=== PATIENT | female | born 1930 | race Caucasian/White ===

== ENCOUNTER 2017-06-20 15:40 | Outpatient (CLI) | payer MEDICARE, OTHER ==
[2016-03-12 02:18] VITALS: BP 172/75
== END 2017-06-20 15:50 ==
LOC: CARD 15:40
PROVIDERS: ATTEND Internal Medicine Cardiovascular Disease
DX: I25.10 Atherosclerotic heart disease of native coronary artery without angina pectoris (principal); I10 Essential (primary) hypertension; E78.5 Hyperlipidemia, unspecified; G62.9 Polyneuropathy, unspecified; Z86.79 Personal history of other diseases of the circulatory system
CPT/HCPCS: G0463

== ENCOUNTER 2018-06-10 12:28 | Outpatient (CLI) | payer MEDICARE, OTHER ==
[2016-03-12 02:18] VITALS: BP 172/75
== END 2018-06-10 12:30 ==
LOC: LAB 12:28
PROVIDERS: ATTEND Family Medicine
DX: R50.9 Fever, unspecified (principal); R05 Cough; R06.2 Wheezing
CPT/HCPCS: 87400

== ENCOUNTER 2018-06-13 09:39 | Inpatient (IN) | payer MEDICARE, OTHER ==
[2018-06-13] MEDS ORDERED: KETOROLAC TROMETHAMINE 30 MG/1ML VIAL IVP ONE (09:40)
[2018-06-13] MEDS ORDERED: IPRATROPIUM/ALBUTEROL SULFATE 3 ML AMPUL.NEB NEB ONE (09:40)
[2018-06-13] MEDS ORDERED: 0.9 % SODIUM CHLORIDE 1,000 ML IV SCH (09:45)
--- NOTE | 2018-06-13 09:50 | ED Physician Documentation ---
General Adult - HISTORIAN Historian: patient - HPI Stated Complaint: fever, pneumonia, decreased LOC Chief Complaint: Fever Onset: days ago (1) Timing: still present Severity: moderate Further Comments: yes (Per staff at alf she was dx with pneumonia 3 days ago and started on Levaquin with no change in symptoms. She has had fever. Increased fatigue. cough. She arrives via ambulance. The EMS report she has had an episode of vomiting as well.) Last known Well Code/Unknown Code: Unknown - ROS CONST: fever, recent illness EYES/ENT: other ([place] ) CVS/RESP: cough, other (oxygen levels ). denies: chest pain, shortness of breath GI/: vomiting MS/SKIN/LYMPH: denies: rash - PAST HX Past History: hypertension, other (Gout, stress incontinence, dementia ) Allergies/Adverse Reactions: Allergies Allergy/AdvReac Type Severity Reaction Status Date / Time Penicillins Allergy Verified 06/13/18 10:28 Home Medications: Ambulatory Orders Medication Instructions Recorded Acetaminophen [Tylenol] 650 mg PO Q6 PRN 06/13/18 Cyanocobalamin [Vitamin B-12] 1,000 mcg PO DAILY 06/13/18 Furosemide [Lasix] 20 mg PO DAILY 06/13/18 Levofloxacin [Levaquin] 500 mg PO DAILY 06/13/18 Mag Hydrox/Aluminum Hyd/Simeth 30 ml PO DAILY PRN 06/13/18 [Mylanta] Magnesium Hydroxide [Milk of 30 ml PO DAILY PRN 06/13/18 Magnesia] - SOCIAL HX Smoking History: non-smoker Alcohol Use: none Drug Use: none - FAMILY HX Family History: No - VITAL SIGNS Vital Signs: Vital Signs Temp Pulse Resp BP Pulse Ox 172/75 03/12/16 02:16 - REVIEWED ASSESSMENTS Nursing Assessment Reviewed: Yes Vitals Reviewed: Yes Progress - Progress Progress: 1047: temp is improving. DG 1 1200: discussed care with Dr Avila. Ordered discussed and noted. she will be admitted. Care for kidney failure - slowly hydrate. Treat pneumonia - observe BNP due to kidney status. DG ED Results Lab/Radiology - Radiology Radiology Impressions: Examination: Portable chest History: Evaluate lungs FEVER, HX OF PNEUMONIA PER JAIL Comparison exam: None provided. Findings: Single view of the chest demonstrates a hypoventilated inspiratory effort resulting in crowding of the cardiac and mediastinal silhouette. Tortuous aorta with vascular calcifications. Diffuse parenchymal haziness. Large consolidative process involving the lateral margin of the right hemithorax. Osseous degenerative changes/osteopenia. Impression: Large right lateral consolidation/effusion (likely loculated). Diffuse interstitial prominence suggesting increased volume status vs infiltrate. Electronically signed on Jun 13, 2018 10:35:44 AM [employer] by: Flex Royal - Orders Orders: ED Orders Category Date Time Status Urinary catheterization 1T Care 06/13/18 09:41 Active CHEST 1VIEW [RAD] Stat Exams 06/13/18 Ordered BLOOD CULTURE Stat Lab 06/13/18 Ordered CBC/PLATELET/DIFF Routine Lab 06/13/18 Ordered CMP Routine Lab 06/13/18 Ordered INFLUENZA A&B Routine Lab 06/13/18 Uncollected URINALYSIS Routine Lab 06/13/18 Ordered 0.9 % Sodium Chloride [Normal Saline] 1,000 ml Med 06/13/18 09:45 Ordered IV Q10H Ipratropium/Albuterol Sulfate [Duoneb] Med 06/13/18 09:40 Discontinued 3 ml NEB NOW ONE Ketorolac Tromethamine [Toradol] Med 06/13/18 09:40 Discontinued 30 mg IVP NOW ONE Oxygen Daily Oxygen 06/13/18 09:45 Ordered General Adult Physical Exam - PHYSICAL EXAM GENERAL APPEARANCE: no distress EENT: eye inspection normal, dry mucous membranes NECK: normal inspection RESPIRATORY: chest non-tender, wheezes, rhonchi CVS: reg rate & rhythm, heart sounds normal ABDOMEN: soft, no organomegaly, normal bowel sounds, no abdominal bruit, no distension BACK: normal inspection SKIN: warm/dry EXTREMITIES: non-tender NEURO: other (arouses to verbal stimuli No verbal response ) Discharge Clincal Impression: Pneumonia Qualifiers: Pneumonia type: due to unspecified organism Laterality: right Lung location: lower lobe of lung Qualified Code(s): J18.1 - Lobar pneumonia, unspecified organism Kidney failure Qualifiers: Renal failure chronicity: acute Acute renal failure type: unspecified Qualified Code(s): N17.9 - Acute kidney failure, unspecified Condition: Serious Disposition: ADMITTED INPATIENT Decision to Admit: [id number] Date of Decison to Admit: 06/13/18 Decision Time: 12:00
[2018-06-13 10:08] LABS: MEAN CORPUSCULAR HEMOGLOBIN 27.3 pg (28.0-34.0)
[2018-06-13 10:09] LABS: ANISOCYTOSIS 1+ (NEGATIVE); MONOCYTES % 5 % (0-11); SEGMENTED NEUTROPHILS % 85 % (39-79)
[2018-06-13 10:10] LABS: OVALOCYTES 1+ (NEGATIVE)
[2018-06-13 10:40] LABS: APPEARANCE,URINE CLOUDY (CLEAR); COLOR,URINE AMBER (YELLOW); OCCULT BLOOD,URINE 3+ (NEGATIVE); UROBILINOGEN URINE 0.2 Eu (0.2-1.0)
[2018-06-13] MEDS ORDERED: ALBUTEROL SULFATE 2.5 MG/3 ML AMPUL.NEB NEB ONE (11:27)
[2018-06-13] MEDS ORDERED: cefTRIAXone SODIUM 1 GM INJ ONE (12:10)
[2018-06-13] MEDS ORDERED: 0.9 % SODIUM CHLORIDE(MINIBAG+ 100 ML IV ONE (12:11)
[2018-06-13] MEDS: cefTRIAXone SODIUM 1 GM/50 ML INJ IV SCH (12:20)
[2018-06-13 13:03] VITALS: BMI 34.9
[2018-06-13] MEDS ORDERED: AZITHROMYCIN 500 MG VIAL IV ONE (13:46)
[2018-06-13] MEDS ORDERED: 0.9 % SODIUM CHLORIDE 250 ML IV ONE (13:47)
[2018-06-13] MEDS: AZITHROMYCIN 500 MG in 0.9 % SODIUM CHLORIDE 250 ML IV SCH (13:56)
--- NOTE | 2018-06-13 14:51 | Diagnostic Imaging Report ---
<p>Your browser does not support iframes.</p> CRYSTAL VILLALOBOS [facility] [address] [facility] [address] [address] Report Submission Date: Jun 13, 2018 10:35:44 AM FULL TIME BABYSITTER Patient Study Name: DELANO DE LEÓN Date: Jun 13, 2018 9:52:27 AM FULL TIME BABYSITTER Modality Type: DX Gender: F Description: CHEST 1VIEW : [birth year] Institution: [facility] Physician: CRYSTAL VILLALOBOS Examination: Portable chest History: Evaluate lungs FEVER, HX OF PNEUMONIA PER LONG TERM Comparison exam: None provided. Findings: Single view of the chest demonstrates a hypoventilated inspiratory effort resulting in crowding of the cardiac and mediastinal silhouette. Tortuous aorta with vascular calcifications. Diffuse parenchymal haziness. Large consolidative process involving the lateral margin of the right hemithorax. Osseous degenerative changes/osteopenia. Impression: Large right lateral consolidation/effusion (likely loculated). Diffuse interstitial prominence suggesting increased volume status vs infiltrate. Electronically signed on Jun 13, 2018 10:35:44 AM FULL TIME BABYSITTER by: Flex KUO
[2018-06-13] MEDS: IPRATROPIUM/ALBUTEROL SULFATE 3 ML AMPUL.NEB NEB SCH ×3 (15:10→21:16)
--- NOTE | 2018-06-13 17:10 | History and Physical Report ---
History of Present Illnes - History of Present Illness Reason for Visit: Pneumonia History of Present Illness: This is an 87 year old female patient of mine from [facility] who has been having some cough and decreased sensorium for the pat few days. She was on levofloxacin for 3 days, orally, but continued to decline and was brought to the ER, where she was found to be in acute renal failure which seem to be pre renal, and with a large right sided consolidation and a white count of 21K. She has been placed on IV rocephin and azithromycin. We have been gently rehydrating her, and she has actually been a little more oriented over the course of the day. She has an advanced directive and wants no resuscitative measures. 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, Peripheral neuropathy Gastrointestinal: GERD - Past Surgical History Past Surgical History: Appendectomy, Tonsillectomy, Other (T[employer] Fundiplicatio n, leg reconstruction ,left nephrectomy as a child) - Past Social History Smoke: No Alcohol: None Drugs: None Lives: Senior Living ([facility]) Domestic Violence: Negative - Health Maintenance Health Maintenance: Cholesterol Influenza Vaccine: Current for this Influenza Season Pneumonia Vaccine: Yes Resuscitation Status: Resusciation Status Resuscitation Status Do Not Resuscitate - Unable to Obtain History Unable to Obtain: No Review of Systems - Review of Systems Constitutional: Fever, Chills, Sweats, Weakness Eyes: negative: pain ENT: negative: Ear Pain, Ear Discharge Respiratory: Cough, Shortness of Breath, SOB with Excertion. negative: Hemoptysis Cardiovascular: negative: Chest Pain Gastrointestinal: negative: Nausea, Vomiting Genitourinary: negative: Dysuria Musculoskeletal: negative: Neck Pain Skin: negative: Rash Neurological: Weakness, Confusion - Medications/Allergies Allergies/Adverse Reactions: Allergies Allergy/AdvReac Type Severity Reaction Status Date / Time Penicillins Allergy Unknown Verified 06/13/18 14:28 Home Medications: Home Medications Acetaminophen [Tylenol] 650 mg PO Q6 PRN 06/13/18 Cyanocobalamin [Vitamin B-12] 1,000 mcg PO DAILY 06/13/18 Furosemide [Lasix] 20 mg PO DAILY 06/13/18 Levofloxacin [Levaquin] 500 mg PO DAILY 06/13/18 Mag Hydrox/Aluminum Hyd/Simeth [Mylanta] 30 ml PO DAILY PRN 02/27/19 Magnesium Hydroxide [Milk of Magnesia] 30 ml PO DAILY PRN 06/13/18 Current Inpatient Medications: Current Inpatient Medications Albuterol/Ipratropium (Duoneb) 3 ml NEB Q4 [facility] Last Admin: 06/13/18 15:10 Dose: 3 ml Ceftriaxone Sodium (Rocephin) 1 gm IV DAILY [facility] Last Admin: 06/13/18 12:20 Dose: 1 gm Sodium Chloride (Normal Saline) 1,000 mls @ 100 mls/hr IV Q10H [facility] Azithromycin 500 mg/ Sodium (Chloride) 250 mls @ 125 mls/hr IV Q24H [facility] Stop: 06/23/18 12:59 Last Admin: 06/13/18 13:56 Dose: 125 mls/hr Sodium Chloride (Normal Saline Flush) 10 ml IVF BID [facility] Exam - Exam Vital Signs: Vital Signs (72 hours) 06/13/18 06/13/18 06/13/18 09:40 10:44 12:20 Temperature 101.6 F H 100.1 F H Pulse Rate [ 109 H 123 H Apical] Pulse Rate [ Left] Pulse Rate [ 111 H Pulse ox] Respiratory 25 H 24 22 Rate Blood Pressure 111/51 116/40 105/68 [Left Arm] O2 Sat by Pulse 93 95 95 Oximetry 06/13/18 06/13/18 06/13/18 12:54 12:57 15:30 Temperature 98.7 F 98.7 F 99.2 F Pulse Rate [ Apical] Pulse Rate [ 121 H 121 H Left] Pulse Rate [ Pulse ox] Respiratory 20 20 Rate Blood Pressure 112/50 112/50 [Left Arm] O2 Sat by Pulse 96 96 Oximetry General: No: Alert, Oriented to Person, Oriented to Place, Oriented to Time HEENT: Atraumatic, PERRLA, EOMI Neck: No: Stridor Lungs: Wheezes, Rales, Rhonchi, Decreased Air Movement Cardiovascular: Irregularly Irregular Murmur: Systolic Murmur Murmur Location: Left Sternal Boarder Heart Murmur Grade: II Abdomen: Normal bowel sounds, Soft Genitourinary: No: Other Male Genitourinary: No: Other Female Genitourinary: No: Other Integumentary: No: Cyanotic Extremities: No cyanosis Neurological: No: Normal gait, Normal speech, Strength Equal Bilat Psych/Mental Status: Other (Minimally responsive) - Laboratory Results Laboratory Results: Laboratory Results 06/13/18 06/13/18 06/13/18 09:45 09:45 09:45 WBC 21.60 H RBC 4.66 Hgb 12.7 Hct 39.3 MCV 84.0 MCH 27.3 L MCHC 32.3 RDW 16.3 H Plt Count 381 Seg Neutrophils % 85 H Band Neutrophils % 3 Lymphocytes % 5 L Monocytes % 5 Metamyelocytes % 2 H Anisocytosis 1+ H Ovalocytes 1+ H [place] Cells 1+ H Sodium 136 Potassium 3.5 Chloride 94 L Carbon Dioxide 27 BUN 80 H Creatinine 3.40 H Estimated Creat Clear 17 Est GFR ( Amer) 16 L Est GFR (Non-Af Amer) 14 L Glucose 111 H Calcium 8.2 L Total Bilirubin 1.0 AST 71 H ALT 28 Alkaline Phosphatase 112 NT-Pro-B Natriuret Pep Total Protein 5.2 L Albumin 2.7 L Urine Color Cancelled Urine Appearance Cancelled Urine pH Cancelled Ur Specific [place] Cancelled Urine Protein Cancelled Urine Ketones Cancelled Urine Occult Blood Cancelled Urine Nitrite Cancelled Urine Bilirubin Cancelled Urine Urobilinogen Cancelled Ur Leukocyte Esterase Cancelled Urine RBC Cancelled Urine WBC Cancelled Urine WBC Clumps Cancelled Ur Squamous Epith Cells Cancelled Ur Transition Epith Cell Cancelled Ur Renal Epithelial Cell Cancelled Ammonium Urate Crystals Cancelled Calcium Carbonate Cryst Cancelled Calcium Phosphate Cryst Cancelled Calcium Oxalate Crystal Cancelled Leucine Crystals Cancelled Cystine Crystals Cancelled Uric Acid Crystals Cancelled Triple Phos Crystals Cancelled Cholesterol Crystals Cancelled Tyrosine Crystals Cancelled Hippuric Acid Crystals Cancelled Bilirubin Crystals Cancelled Other Crystals Cancelled Amorphous Sediment Cancelled Urine Bacteria Cancelled Hyaline Casts Cancelled Granular Casts Cancelled Waxy Casts Cancelled RBC Casts Cancelled WBC Casts Cancelled Other Casts Cancelled Urine Starch Cancelled Urine Mucus Cancelled Urine Trichomonas Cancelled Urine Yeast Cancelled Urine Sperm Cancelled Urine Glucose Cancelled Influenza A (Rapid) Influenza B (Rapid) 06/13/18 06/13/18 06/13/18 09:45 09:45 Unknown WBC RBC Hgb Hct MCV MCH MCHC RDW Plt Count Seg Neutrophils % Band Neutrophils % Lymphocytes % Monocytes % Metamyelocytes % Anisocytosis Ovalocytes [place] Cells Sodium Potassium Chloride Carbon Dioxide BUN Creatinine Estimated Creat Clear Est GFR ( Amer) Est GFR (Non-Af Amer) Glucose Calcium Total Bilirubin AST ALT Alkaline Phosphatase NT-Pro-B Natriuret Pep 80721.8 H Total Protein Albumin Urine Color [place] Urine Appearance Cloudy H Urine pH 5.0 Ur Specific [place] 1.020 Urine Protein 1+ H Urine Ketones Trace H Urine Occult Blood 3+ H Urine Nitrite Negative Urine Bilirubin 1+ H Urine Urobilinogen 0.2 Ur Leukocyte Esterase 3+ H Urine RBC Urine WBC Urine WBC Clumps Ur Squamous Epith Cells Ur Transition Epith Cell Ur Renal Epithelial Cell Ammonium Urate Crystals Calcium Carbonate Cryst Calcium Phosphate Cryst Calcium Oxalate Crystal Leucine Crystals Cystine Crystals Uric Acid Crystals Triple Phos Crystals Cholesterol Crystals Tyrosine Crystals Hippuric Acid Crystals Bilirubin Crystals Other Crystals Amorphous Sediment Urine Bacteria Hyaline Casts Granular Casts Waxy Casts RBC Casts WBC Casts Other Casts Urine Starch Urine Mucus Urine Trichomonas Urine Yeast Urine Sperm Urine Glucose Negative Influenza A (Rapid) Negative Influenza B (Rapid) Negative Assessment/Plan - Assessment/Plan (1) Pneumonia Status: Acute Current Visit: Yes Qualifiers: Pneumonia type: due to unspecified organism Laterality: right Lung location: lower lobe of lung Qualified Code(s): J18.1 - Lobar pneumonia, unspecified organism Assessment: Continue rocephin and azithromycin Continue nebulizer treatments Supplemental oxygen (2) Kidney failure Status: Acute Current Visit: Yes Qualifiers: Renal failure chronicity: acute Acute renal failure type: unspecified Qualified Code(s): N17.9 - Acute kidney failure, unspecified Assessment: Complicated by solitary kidney (3) Atrial fibrillation with rapid ventricular response Status: Acute Current Visit: No Assessment: New onset (4) Chronic hypertension Status: Acute Current Visit: No Assessment: currently well controlled VTE Assessment - RISK FACTOR SCORE VTE RISK FACTOR SCORES: AGE OVER 60 YEARS, ACUTE INFECTION OTHER THEN SEPSIS, ACUTE RESPIRATORY FAILURE/SEVERE COPD - RISK VTE HIGH RISK: SCORE OF 3-4 (RISK PROXIMAL DVT 4-8%) PROPHYLAXIS NEEDED (On Lovenox, SCDs)
[2018-06-13] MEDS: ENOXAPARIN SODIUM 30 MG/0.3 ML DISP.SYRIN SQ SCH (18:13)
[2018-06-13] MEDS: 0.9 % SODIUM CHLORIDE 1,000 ML IV SCH (23:05)
[2018-06-13] MEDS: SALINE FLUSH 10 ML DISP.SYRIN IVF SCH (23:05)
[2018-06-14] MEDS: IPRATROPIUM/ALBUTEROL SULFATE 3 ML AMPUL.NEB NEB SCH ×6 (02:39→21:56)
[2018-06-14] MEDS: 0.9 % SODIUM CHLORIDE 1,000 ML IV SCH ×2 (07:47→20:54)
[2018-06-14] MEDS: SALINE FLUSH 10 ML DISP.SYRIN IVF SCH ×2 (07:48→21:36)
[2018-06-14] MEDS: ENOXAPARIN SODIUM 30 MG/0.3 ML DISP.SYRIN SQ SCH (07:48)
[2018-06-14] MEDS: cefTRIAXone SODIUM 1 GM/50 ML INJ IV SCH (07:49)
[2018-06-14 07:51] LABS: BASOPHILS % 0.8 (0.0-1.5); EOSINOPHILS % 1.2 % (0.0-6.8); MEAN CORPUSCULAR HEMOGLOBIN 27.3 pg (28.0-34.0); MONOCYTES % 9.4 % (0.0-11.0); NEUTROPHILS # 12.8 # k/uL (1.4-7.7)
--- NOTE | 2018-06-14 07:59 | Inpatient Progress Note ---
Subjective - Required Recertification Statement I anticipate X number of days because-include discharge plan: 4 - Review of Systems Events since last encounter: Paulina is a little more alert today. Her white count has come down, however her chemistries are not yet back. Her temperature is better. She is drinking some orally now. General: Denies: Chills HEENT: Denies: Head Aches Pulmonary: Dyspnea, Cough Cardiovascular: Denies: Chest Pain Gastrointestinal: Denies: Nausea Genitourinary: Denies: Dysuria Musculoskeletal: Denies: Neck Pain, Shoulder Pain Neurological: Weakness, Confusion Objective - Exam Vitals and I&O: Vital Signs Temp 97.7 F 06/14/18 05:34 Pulse 107 H 06/14/18 06:00 Resp 22 06/14/18 06:00 BP 130/52 06/14/18 05:34 Pulse Ox 96 06/14/18 05:34 Intake & Output 06/13/18 06/13/18 06/14/18 11:59 23:59 11:59 Intake Total 120 Output Total 0 Balance 120 Weight 81.647 kg 95.254 kg Intake: Oral 120 Output: Urine 0 Other: Voiding Method Diaper Diaper # Voids 0 1 # Bowel Movements 0 General: Oriented to Person, Cooperative. No: Oriented to Place, Oriented to Time HEENT: Atraumatic, PERRLA Neck: Supple Lungs: Wheezes, Rales, Rhonchi, Decreased Air Movement Cardiovascular: Regular rate Abdomen: Normal bowel sounds, Soft, No tenderness Extremities: Other (2+ edema) Skin: Normal Neurological: Generalized Weakness Psych/Mental Status: No: Mental status NL - Results Results: Laboratory Results WBC 16.00 K/ul (4.00-12.00) H 06/14/18 07:20 RBC 3.91 M/ul (3.90-5.20) 06/14/18 07:20 Hgb 10.7 g/dL (12.0-16.0) L 06/14/18 07:20 Hct 32.7 % (34.5-46.5) L 06/14/18 07:20 MCV 84.0 fl (80.0-100.0) 06/14/18 07:20 MCH 27.3 pg (28.0-34.0) L 06/14/18 07:20 MCHC 32.6 g/dL (30.0-36.0) 06/14/18 07:20 RDW 15.8 % (11.3-14.3) H 06/14/18 07:20 Plt Count 323 K/mm3 (130-400) 06/14/18 07:20 Neut % (Auto) 80.0 % (39.0-79.0) H 06/14/18 07:20 Lymph % (Auto) 8.6 % (16.0-50.0) L 06/14/18 07:20 [place] % (Auto) 9.4 % (0.0-11.0) 06/14/18 07:20 Eos % (Auto) 1.2 % (0.0-6.8) 06/14/18 07:20 Baso % (Auto) 0.8 (0.0-1.5) 06/14/18 07:20 Neut # (Auto) 12.8 # k/uL (1.4-7.7) H 06/14/18 07:20 Lymph # (Auto) 1.4 # k/uL (0.6-4.0) 06/14/18 07:20 [place] # (Auto) 1.5 # k/uL (0.0-0.9) H 06/14/18 07:20 Eos # (Auto) 0.2 # k/uL (0.0-0.6) 06/14/18 07:20 Baso # (Auto) 0.1 # k/uL (0.0-0.5) 06/14/18 07:20 Seg Neutrophils % 85 % (39-79) H 06/13/18 09:45 Band Neutrophils % 3 % (0-12) 06/13/18 09:45 Lymphocytes % 5 % (16-50) L 06/13/18 09:45 Monocytes % 5 % (0-11) 06/13/18 09:45 Metamyelocytes % 2 % (0-0) H 06/13/18 09:45 Anisocytosis 1+ (NEGATIVE) H 06/13/18 09:45 Ovalocytes 1+ (NEGATIVE) H 06/13/18 09:45 [place]op[place] Cells 1+ (NEGATIVE) H 06/13/18 09:45 Sodium 136 mmol/L (136-145) 06/13/18 09:45 Potassium 3.5 mmol/L (3.5-5.1) 06/13/18 09:45 Chloride 94 mmol/L (98-107) L 06/13/18 09:45 Carbon Dioxide 27 mmol/L (22-30) 06/13/18 09:45 BUN 80 mg/dL (7-17) H 06/13/18 09:45 Creatinine 3.40 mg/dL (0.52-1.04) H 06/13/18 09:45 Estimated Creat Clear 17 06/13/18 09:45 Est GFR ( Amer) 16 (60-) L 06/13/18 09:45 Est GFR (Non-Af Amer) 14 (60-) L 06/13/18 09:45 Glucose 111 mg/dL (74-106) H 06/13/18 09:45 Calcium 8.2 mg/dL (8.4-10.2) L 06/13/18 09:45 Total Bilirubin 1.0 mg/dL (0.2-1.3) 06/13/18 09:45 AST 71 U/L (15-46) H 06/13/18 09:45 ALT 28 U/L (13-69) 06/13/18 09:45 Alkaline Phosphatase 112 U/L (38-126) 06/13/18 09:45 NT-Pro-B Natriuret Pep 65118.8 pg/mL (15.0-450.0) H 06/13/18 Unknown Total Protein 5.2 g/dL (6.3-8.2) L 06/13/18 09:45 Albumin 2.7 g/dL (3.5-5.0) L 06/13/18 09:45 Urine Color [place] (YELLOW) 06/13/18 09:45 Urine Appearance Cloudy (CLEAR) H 06/13/18 09:45 Urine pH 5.0 (5.0 - 8.0) 06/13/18 09:45 Ur Specific [place] 1.020 (1.010-1.030) 06/13/18 09:45 Urine Protein 1+ mg/dL (NEGATIVE) H 06/13/18 09:45 Urine Ketones Trace mg/dL (NEGATIVE) H 06/13/18 09:45 Urine Occult Blood 3+ (NEGATIVE) H 06/13/18 09:45 Urine Nitrite Negative (NEGATIVE) 06/13/18 09:45 Urine Bilirubin 1+ (NEGATIVE) H 06/13/18 09:45 Urine Urobilinogen 0.2 Eu (0.2-1.0) 06/13/18 09:45 Ur Leukocyte Esterase 3+ (NEGATIVE) H 06/13/18 09:45 Urine RBC Cancelled 06/13/18 09:45 Urine WBC Cancelled 06/13/18 09:45 Urine WBC Clumps Cancelled 06/13/18 09:45 Ur Squamous Epith Cells Cancelled 06/13/18 09:45 Ur Transition Epith Cell Cancelled 06/13/18 09:45 Ur Renal Epithelial Cell Cancelled 06/13/18 09:45 Ammonium Urate Crystals Cancelled 06/13/18 09:45 Calcium Carbonate Cryst Cancelled 06/13/18 09:45 Calcium Phosphate Cryst Cancelled 06/13/18 09:45 Calcium Oxalate Crystal Cancelled 06/13/18 09:45 Leucine Crystals Cancelled 06/13/18 09:45 Cystine Crystals Cancelled 06/13/18 09:45 Uric Acid Crystals Cancelled 06/13/18 09:45 Triple Phos Crystals Cancelled 06/13/18 09:45 Cholesterol Crystals Cancelled 06/13/18 09:45 Tyrosine Crystals Cancelled 06/13/18 09:45 Hippuric Acid Crystals Cancelled 06/13/18 09:45 Bilirubin Crystals Cancelled 06/13/18 09:45 Other Crystals Cancelled 06/13/18 09:45 Amorphous Sediment Cancelled 06/13/18 09:45 Urine Bacteria Cancelled 06/13/18 09:45 Hyaline Casts Cancelled 06/13/18 09:45 Granular Casts Cancelled 06/13/18 09:45 Waxy Casts Cancelled 06/13/18 09:45 RBC Casts Cancelled 06/13/18 09:45 WBC Casts Cancelled 06/13/18 09:45 Other Casts Cancelled 06/13/18 09:45 Urine Starch Cancelled 06/13/18 09:45 Urine Mucus Cancelled 06/13/18 09:45 Urine Trichomonas Cancelled 06/13/18 09:45 Urine Yeast Cancelled 06/13/18 09:45 Urine Sperm Cancelled 06/13/18 09:45 Urine Glucose Negative mg/dL (NEGATIVE) 06/13/18 09:45 Influenza A (Rapid) Negative (NEGATIVE) 06/13/18 09:45 Influenza B (Rapid) Negative (NEGATIVE) 06/13/18 09:45 Assessment/Plan - Assessment/Plan (1) Pneumonia Status: Acute Current Visit: Yes Qualifiers: Pneumonia type: due to unspecified organism Laterality: right Lung location: lower lobe of lung Qualified Code(s): J18.1 - Lobar pneumonia, unspecified organism Assessment: WBC is down CXR and chemistries pending (2) Kidney failure Status: Acute Current Visit: Yes Qualifiers: Renal failure chronicity: acute Acute renal failure type: unspecified Qualified Code(s): N17.9 - Acute kidney failure, unspecified Assessment: Continue IVF Await chemistries (3) Atrial fibrillation with rapid ventricular response Status: Acute Current Visit: No Assessment: Chronic (4) Chronic hypertension Status: Acute Current Visit: No Assessment: BP well controlled
[2018-06-14] MEDS: AZITHROMYCIN 500 MG in 0.9 % SODIUM CHLORIDE 250 ML IV SCH (15:25)
[2018-06-14] MEDS: LORazepam 2 MG/ML VIAL IV PRN (18:48)
[2018-06-14] MEDS: ACETAMINOPHEN 325 MG TABLET PO PRN (18:52)
[2018-06-15] MEDS: fentaNYL CITRATE/PF 100 MCG/2 ML INJ. IV PRN ×6 (00:31→23:11)
[2018-06-15] MEDS: IPRATROPIUM/ALBUTEROL SULFATE 3 ML AMPUL.NEB NEB SCH ×6 (01:50→20:38)
--- NOTE | 2018-06-15 02:12 | Diagnostic Imaging Report ---
CRYSTAL VILLALOBOS [facility] [address] [facility] [address], [place]. [address] Report Submission Date: Jun 14, 2018 7:34:22 AM PATIENT REGISTRATION REP Patient Study Name: DELANO DE LEÓN Date: Jun 14, 2018 6:57:45 AM PATIENT REGISTRATION REP Modality Type: DX Gender: F Description: CHEST 1VIEW : [birth year] Institution: [facility] Physician: CRYSTAL VILLALOBOS Examination: Portable chest History: Pneumonia/fever Comparison exam: 13 June 2018 Findings: Single view of the chest demonstrates a hypoventilated inspiratory effort resulting in crowding of the cardiac and mediastinal silhouette. Tortuous aorta with vascular calcifications. Continued diffuse parenchymal haziness. Large consolidative process involving the lateral margin of the right hemithorax. Osseous degenerative changes/osteopenia. Impression: Continued large right lateral consolidation/effusion. Diffuse interstitial prominence: unchanged. Electronically signed on Jun 14, 2018 7:34:22 AM PATIENT REGISTRATION REP by: Flex KUO
[2018-06-15] MEDS: LORazepam 2 MG/ML VIAL IV PRN ×2 (04:17→20:17)
[2018-06-15] MEDS: 0.9 % SODIUM CHLORIDE 1,000 ML IV SCH ×2 (04:45→04:48)
--- NOTE | 2018-06-15 08:39 | Inpatient Progress Note ---
Subjective - Required Recertification Statement I anticipate X number of days because-include discharge plan: 1 - Review of Systems Events since last encounter: Paulina has continued to decline. She appears to be comfortable. She now responds only to sternal rub. She has not had any improvement in her renal function and this morning, we had to TKO her fluids due to some signs of fluid overload. Her BNP continues to be very elevated. She does not appear to be in any pain. I have discussed with granddaughter that her condition is dire and that our goal is to keep her comfortable. General: Denies: Chills HEENT: Denies: Head Aches Pulmonary: Cough Cardiovascular: Denies: Chest Pain Gastrointestinal: Denies: Vomiting Genitourinary: Deferred Musculoskeletal: Deferred Neurological: Deferred Objective - Exam Vitals and I&O: Vital Signs Temp 98.7 F 06/15/18 06:43 Pulse 105 H 06/15/18 06:43 Resp 22 06/15/18 08:15 BP 104/69 06/15/18 06:43 Pulse Ox 97 06/15/18 06:43 Intake & Output 06/14/18 06/14/18 06/15/18 11:59 23:59 11:59 Intake Total 60 120 Output Total 1 Balance 60 119 Intake: Oral 60 120 Output: Urine 1 Other: Voiding Method Diaper Diaper Diaper # Voids 1 0 1 # Bowel Movements 0 General: No: Alert, Oriented to Person, Oriented to Place, Oriented to Time HEENT: Atraumatic Neck: Supple. No: No JVD (Some JVD is noted) Lungs: Wheezes, Rales, Rhonchi, Prolonged Expiration Cardiovascular: Irregularly Irregular, Tachycardia Abdomen: Normal bowel sounds, Soft, No tenderness Extremities: Other (1+ edema) Neurological: No: Normal gait Psych/Mental Status: Other (No vebally responsive) - Results Results: Laboratory Results WBC 16.00 K/ul (4.00-12.00) H 06/14/18 07:20 RBC 3.91 M/ul (3.90-5.20) 06/14/18 07:20 Hgb 10.7 g/dL (12.0-16.0) L 06/14/18 07:20 Hct 32.7 % (34.5-46.5) L 06/14/18 07:20 MCV 84.0 fl (80.0-100.0) 06/14/18 07:20 MCH 27.3 pg (28.0-34.0) L 06/14/18 07:20 MCHC 32.6 g/dL (30.0-36.0) 06/14/18 07:20 RDW 15.8 % (11.3-14.3) H 06/14/18 07:20 Plt Count 323 K/mm3 (130-400) 06/14/18 07:20 Neut % (Auto) 80.0 % (39.0-79.0) H 06/14/18 07:20 Lymph % (Auto) 8.6 % (16.0-50.0) L 06/14/18 07:20 [place] % (Auto) 9.4 % (0.0-11.0) 06/14/18 07:20 Eos % (Auto) 1.2 % (0.0-6.8) 06/14/18 07:20 Baso % (Auto) 0.8 (0.0-1.5) 06/14/18 07:20 Neut # (Auto) 12.8 # k/uL (1.4-7.7) H 06/14/18 07:20 Lymph # (Auto) 1.4 # k/uL (0.6-4.0) 06/14/18 07:20 [place] # (Auto) 1.5 # k/uL (0.0-0.9) H 06/14/18 07:20 Eos # (Auto) 0.2 # k/uL (0.0-0.6) 06/14/18 07:20 Baso # (Auto) 0.1 # k/uL (0.0-0.5) 06/14/18 07:20 Seg Neutrophils % 85 % (39-79) H 06/13/18 09:45 Band Neutrophils % 3 % (0-12) 06/13/18 09:45 Lymphocytes % 5 % (16-50) L 06/13/18 09:45 Monocytes % 5 % (0-11) 06/13/18 09:45 Metamyelocytes % 2 % (0-0) H 06/13/18 09:45 Anisocytosis 1+ (NEGATIVE) H 06/13/18 09:45 Ovalocytes 1+ (NEGATIVE) H 06/13/18 09:45 [place] Cells 1+ (NEGATIVE) H 06/13/18 09:45 Sodium 144 mmol/L (136-145) 06/15/18 07:15 Potassium 3.3 mmol/L (3.5-5.1) L 06/15/18 07:15 Chloride 105 mmol/L (98-107) 06/15/18 07:15 Carbon Dioxide 27 mmol/L (22-30) 06/15/18 07:15 BUN 84 mg/dL (7-17) H 06/15/18 07:15 Creatinine 3.02 mg/dL (0.52-1.04) H 06/15/18 07:15 Estimated Creat Clear 22 06/15/18 07:15 Est GFR ( Amer) 19 (60-) L 06/15/18 07:15 Est GFR (Non-Af Amer) 15 (60-) L 06/15/18 07:15 Glucose 78 mg/dL (74-106) 06/15/18 07:15 Calcium 7.9 mg/dL (8.4-10.2) L 06/15/18 07:15 Total Bilirubin 0.7 mg/dL (0.2-1.3) 06/14/18 07:20 AST 68 U/L (15-46) H 06/14/18 07:20 ALT 27 U/L (13-69) 06/14/18 07:20 Alkaline Phosphatase 98 U/L (38-126) 06/14/18 07:20 NT-Pro-B Natriuret Pep 15483.4 pg/mL (15.0-450.0) H 06/15/18 07:15 Total Protein 4.9 g/dL (6.3-8.2) L 06/14/18 07:20 Albumin 2.3 g/dL (3.5-5.0) L 06/14/18 07:20 Urine Color [place] (YELLOW) 06/13/18 09:45 Urine Appearance Cloudy (CLEAR) H 06/13/18 09:45 Urine pH 5.0 (5.0 - 8.0) 06/13/18 09:45 Ur Specific [place] 1.020 (1.010-1.030) 06/13/18 09:45 Urine Protein 1+ mg/dL (NEGATIVE) H 06/13/18 09:45 Urine Ketones Trace mg/dL (NEGATIVE) H 06/13/18 09:45 Urine Occult Blood 3+ (NEGATIVE) H 06/13/18 09:45 Urine Nitrite Negative (NEGATIVE) 06/13/18 09:45 Urine Bilirubin 1+ (NEGATIVE) H 06/13/18 09:45 Urine Urobilinogen 0.2 Eu (0.2-1.0) 06/13/18 09:45 Ur Leukocyte Esterase 3+ (NEGATIVE) H 06/13/18 09:45 Urine RBC Cancelled 06/13/18 09:45 Urine WBC Cancelled 06/13/18 09:45 Urine WBC Clumps Cancelled 06/13/18 09:45 Ur Squamous Epith Cells Cancelled 06/13/18 09:45 Ur Transition Epith Cell Cancelled 06/13/18 09:45 Ur Renal Epithelial Cell Cancelled 06/13/18 09:45 Ammonium Urate Crystals Cancelled 06/13/18 09:45 Calcium Carbonate Cryst Cancelled 06/13/18 09:45 Calcium Phosphate Cryst Cancelled 06/13/18 09:45 Calcium Oxalate Crystal Cancelled 06/13/18 09:45 Leucine Crystals Cancelled 06/13/18 09:45 Cystine Crystals Cancelled 06/13/18 09:45 Uric Acid Crystals Cancelled 06/13/18 09:45 Triple Phos Crystals Cancelled 06/13/18 09:45 Cholesterol Crystals Cancelled 06/13/18 09:45 Tyrosine Crystals Cancelled 06/13/18 09:45 Hippuric Acid Crystals Cancelled 06/13/18 09:45 Bilirubin Crystals Cancelled 06/13/18 09:45 Other Crystals Cancelled 06/13/18 09:45 Amorphous Sediment Cancelled 06/13/18 09:45 Urine Bacteria Cancelled 06/13/18 09:45 Hyaline Casts Cancelled 06/13/18 09:45 Granular Casts Cancelled 06/13/18 09:45 Waxy Casts Cancelled 06/13/18 09:45 RBC Casts Cancelled 06/13/18 09:45 WBC Casts Cancelled 06/13/18 09:45 Other Casts Cancelled 06/13/18 09:45 Urine Starch Cancelled 06/13/18 09:45 Urine Mucus Cancelled 06/13/18 09:45 Urine Trichomonas Cancelled 06/13/18 09:45 Urine Yeast Cancelled 06/13/18 09:45 Urine Sperm Cancelled 06/13/18 09:45 Urine Glucose Negative mg/dL (NEGATIVE) 06/13/18 09:45 Influenza A (Rapid) Negative (NEGATIVE) 06/13/18 09:45 Influenza B (Rapid) Negative (NEGATIVE) 06/13/18 09:45 Assessment/Plan - Assessment/Plan (1) Pneumonia Status: Acute Current Visit: Yes Qualifiers: Pneumonia type: due to unspecified organism Laterality: right Lung location: lower lobe of lung Qualified Code(s): J18.1 - Lobar pneumonia, unspecified organism Assessment: Continue current antibiotics (2) Kidney failure Status: Acute Current Visit: Yes Qualifiers: Renal failure chronicity: acute Acute renal failure type: unspecified Qualified Code(s): N17.9 - Acute kidney failure, unspecified Assessment: Not improved despite hydration (3) Atrial fibrillation with rapid ventricular response Status: Acute Current Visit: No Assessment: Now with rate controlled Will d/c telemetry (4) Chronic hypertension Status: Acute Current Visit: No Assessment: Stable
[2018-06-15] MEDS: cefTRIAXone SODIUM 1 GM/50 ML INJ IV SCH (09:28)
[2018-06-15] MEDS: ENOXAPARIN SODIUM 30 MG/0.3 ML DISP.SYRIN SQ SCH (09:28)
[2018-06-15] MEDS: SALINE FLUSH 10 ML DISP.SYRIN IVF SCH ×2 (09:29→20:24)
[2018-06-15] MEDS: AZITHROMYCIN 500 MG in 0.9 % SODIUM CHLORIDE 250 ML IV SCH (13:59)
[2018-06-15] MEDS ORDERED: fentaNYL CITRATE/PF 100 MCG/2 ML INJ. ONE ×2 (18:24→22:59)
[2018-06-15] MEDS: ACETAMINOPHEN 325 MG TABLET PO PRN (23:10)
[2018-06-16] MEDS: LORazepam 2 MG/ML VIAL IV PRN ×2 (01:23→11:24)
[2018-06-16] MEDS: IPRATROPIUM/ALBUTEROL SULFATE 3 ML AMPUL.NEB NEB SCH ×6 (01:23→20:47)
--- NOTE | 2018-06-16 01:26 | Diagnostic Imaging Report ---
[facility]/MED SURG [facility] [address] [address] [facility] [address] [id number] Report Submission Date: Jun 15, 2018 7:48:38 AM TRACK REPAIR PERSON Patient Study Name: DELANO DE LEÓN Date: Jun 15, 2018 7:11:01 AM TRACK REPAIR PERSON Modality Type: DX Gender: F Description: CHEST 1VIEW : [birth year] Institution: [facility] Physician: [facility]/MED SURG Exam: AP chest. History: Pneumonia. The examination is compared to a study dated June 14 2018. Right lower lobe atelectasis and pleural effusion does persist. Linear infiltrates in the left base are noted. Cardiomegaly is stable with atherosclerotic plaque seen in the aorta. No new bony abnormalities are identified. Impression: No significant change. Electronically signed on Jun 15, 2018 7:48:38 AM TRACK REPAIR PERSON by: Rob KUO
[2018-06-16] MEDS: ACETAMINOPHEN 325 MG TABLET PO PRN (06:27)
[2018-06-16] MEDS: ENOXAPARIN SODIUM 30 MG/0.3 ML DISP.SYRIN SQ SCH (09:15)
[2018-06-16] MEDS: SALINE FLUSH 10 ML DISP.SYRIN IVF SCH ×2 (09:17→20:58)
--- NOTE | 2018-06-16 09:17 | Inpatient Progress Note ---
Subjective - Required Recertification Statement I anticipate X number of days because-include discharge plan: 1 day - Review of Systems Events since last encounter: Patient's condition continues to decline. Patient is not taking anything by mouth this time. Fentanyl does not seem to be holding her with her pain. Pain is developing some pulmonary congestion. Family is aware of patient's condition. Objective - Exam Vitals and I&O: Vital Signs Temp 99.8 F H 06/16/18 08:19 Pulse 117 H 06/16/18 08:19 Resp 24 06/16/18 08:19 BP 124/70 06/16/18 08:19 Pulse Ox 95 06/16/18 08:19 Intake & Output 06/15/18 06/15/18 06/16/18 11:59 23:59 11:59 Intake Total 180 30 Balance 180 30 Intake: Oral 180 30 Other: Voiding Method Diaper Diaper Diaper # Voids 1 0 1 # Bowel Movements 0 General: Other (ponds to pain stimuli) Neck: Supple Lungs: Normal air movement, Rales (RLL), Rhonchi (course upper airway) Cardiovascular: Regular rate (tachy at times), Normal S1, Normal S2, No murmurs Abdomen: Decreased Bowel Sounds Extremities: No clubbing, No cyanosis, No edema Skin: Normal, [place], Warm Psych/Mental Status: No: Mental status NL, Appropriate Affect - Results Results: Laboratory Results WBC 16.00 K/ul (4.00-12.00) H 06/14/18 07:20 RBC 3.91 M/ul (3.90-5.20) 06/14/18 07:20 Hgb 10.7 g/dL (12.0-16.0) L 06/14/18 07:20 Hct 32.7 % (34.5-46.5) L 06/14/18 07:20 MCV 84.0 fl (80.0-100.0) 06/14/18 07:20 MCH 27.3 pg (28.0-34.0) L 06/14/18 07:20 MCHC 32.6 g/dL (30.0-36.0) 06/14/18 07:20 RDW 15.8 % (11.3-14.3) H 06/14/18 07:20 Plt Count 323 K/mm3 (130-400) 06/14/18 07:20 Neut % (Auto) 80.0 % (39.0-79.0) H 06/14/18 07:20 Lymph % (Auto) 8.6 % (16.0-50.0) L 06/14/18 07:20 [place] % (Auto) 9.4 % (0.0-11.0) 06/14/18 07:20 Eos % (Auto) 1.2 % (0.0-6.8) 06/14/18 07:20 Baso % (Auto) 0.8 (0.0-1.5) 06/14/18 07:20 Neut # (Auto) 12.8 # k/uL (1.4-7.7) H 06/14/18 07:20 Lymph # (Auto) 1.4 # k/uL (0.6-4.0) 06/14/18 07:20 [place] # (Auto) 1.5 # k/uL (0.0-0.9) H 06/14/18 07:20 Eos # (Auto) 0.2 # k/uL (0.0-0.6) 06/14/18 07:20 Baso # (Auto) 0.1 # k/uL (0.0-0.5) 06/14/18 07:20 Seg Neutrophils % 85 % (39-79) H 06/13/18 09:45 Band Neutrophils % 3 % (0-12) 06/13/18 09:45 Lymphocytes % 5 % (16-50) L 06/13/18 09:45 Monocytes % 5 % (0-11) 06/13/18 09:45 Metamyelocytes % 2 % (0-0) H 06/13/18 09:45 Anisocytosis 1+ (NEGATIVE) H 06/13/18 09:45 Ovalocytes 1+ (NEGATIVE) H 06/13/18 09:45 [place] Cells 1+ (NEGATIVE) H 06/13/18 09:45 Sodium 144 mmol/L (136-145) 06/15/18 07:15 Potassium 3.3 mmol/L (3.5-5.1) L 06/15/18 07:15 Chloride 105 mmol/L (98-107) 06/15/18 07:15 Carbon Dioxide 27 mmol/L (22-30) 06/15/18 07:15 BUN 84 mg/dL (7-17) H 06/15/18 07:15 Creatinine 3.02 mg/dL (0.52-1.04) H 06/15/18 07:15 Estimated Creat Clear 22 06/15/18 07:15 Est GFR ( Amer) 19 (60-) L 06/15/18 07:15 Est GFR (Non-Af Amer) 15 (60-) L 06/15/18 07:15 Glucose 78 mg/dL (74-106) 06/15/18 07:15 Calcium 7.9 mg/dL (8.4-10.2) L 06/15/18 07:15 Total Bilirubin 0.7 mg/dL (0.2-1.3) 06/14/18 07:20 AST 68 U/L (15-46) H 06/14/18 07:20 ALT 27 U/L (13-69) 06/14/18 07:20 Alkaline Phosphatase 98 U/L (38-126) 06/14/18 07:20 NT-Pro-B Natriuret Pep 59916.4 pg/mL (15.0-450.0) H 06/15/18 07:15 Total Protein 4.9 g/dL (6.3-8.2) L 06/14/18 07:20 Albumin 2.3 g/dL (3.5-5.0) L 06/14/18 07:20 Urine Color [place] (YELLOW) 06/13/18 09:45 Urine Appearance Cloudy (CLEAR) H 06/13/18 09:45 Urine pH 5.0 (5.0 - 8.0) 06/13/18 09:45 Ur Specific [place] 1.020 (1.010-1.030) 06/13/18 09:45 Urine Protein 1+ mg/dL (NEGATIVE) H 06/13/18 09:45 Urine Ketones Trace mg/dL (NEGATIVE) H 06/13/18 09:45 Urine Occult Blood 3+ (NEGATIVE) H 06/13/18 09:45 Urine Nitrite Negative (NEGATIVE) 06/13/18 09:45 Urine Bilirubin 1+ (NEGATIVE) H 06/13/18 09:45 Urine Urobilinogen 0.2 Eu (0.2-1.0) 06/13/18 09:45 Ur Leukocyte Esterase 3+ (NEGATIVE) H 06/13/18 09:45 Urine RBC Cancelled 06/13/18 09:45 Urine WBC Cancelled 06/13/18 09:45 Urine WBC Clumps Cancelled 06/13/18 09:45 Ur Squamous Epith Cells Cancelled 06/13/18 09:45 Ur Transition Epith Cell Cancelled 06/13/18 09:45 Ur Renal Epithelial Cell Cancelled 06/13/18 09:45 Ammonium Urate Crystals Cancelled 06/13/18 09:45 Calcium Carbonate Cryst Cancelled 06/13/18 09:45 Calcium Phosphate Cryst Cancelled 06/13/18 09:45 Calcium Oxalate Crystal Cancelled 06/13/18 09:45 Leucine Crystals Cancelled 06/13/18 09:45 Cystine Crystals Cancelled 06/13/18 09:45 Uric Acid Crystals Cancelled 06/13/18 09:45 Triple Phos Crystals Cancelled 06/13/18 09:45 Cholesterol Crystals Cancelled 06/13/18 09:45 Tyrosine Crystals Cancelled 06/13/18 09:45 Hippuric Acid Crystals Cancelled 06/13/18 09:45 Bilirubin Crystals Cancelled 06/13/18 09:45 Other Crystals Cancelled 06/13/18 09:45 Amorphous Sediment Cancelled 06/13/18 09:45 Urine Bacteria Cancelled 06/13/18 09:45 Hyaline Casts Cancelled 06/13/18 09:45 Granular Casts Cancelled 06/13/18 09:45 Waxy Casts Cancelled 06/13/18 09:45 RBC Casts Cancelled 06/13/18 09:45 WBC Casts Cancelled 06/13/18 09:45 Other Casts Cancelled 06/13/18 09:45 Urine Starch Cancelled 06/13/18 09:45 Urine Mucus Cancelled 06/13/18 09:45 Urine Trichomonas Cancelled 06/13/18 09:45 Urine Yeast Cancelled 06/13/18 09:45 Urine Sperm Cancelled 06/13/18 09:45 Urine Glucose Negative mg/dL (NEGATIVE) 06/13/18 09:45 Influenza A (Rapid) Negative (NEGATIVE) 06/13/18 09:45 Influenza B (Rapid) Negative (NEGATIVE) 06/13/18 09:45 Assessment/Plan - Assessment/Plan (1) Pneumonia Status: Acute Current Visit: Yes Qualifiers: Pneumonia type: due to unspecified organism Laterality: right Lung location: lower lobe of lung Qualified Code(s): J18.1 - Lobar pneumonia, unspecified organism Assessment: continue with present care, prognosis is not good. Family is aware. (2) Kidney failure Status: Acute Current Visit: Yes Qualifiers: Renal failure chronicity: acute Acute renal failure type: unspecified Qualified Code(s): N17.9 - Acute kidney failure, unspecified Assessment: stable (3) Chronic hypertension Status: Acute Current Visit: No Assessment: stable
[2018-06-16] MEDS: cefTRIAXone SODIUM 1 GM/50 ML INJ IV SCH ×2 (09:20→09:30)
[2018-06-16] MEDS: SCOPOLAMINE HYDROBROMIDE 1.5MG/72HR PATCH TD SCH (10:04)
[2018-06-16] MEDS: MORPHINE SULFATE 10MG/0.5ML ORAL SOLN UD CUP SL PRN ×2 (10:34→13:30)
[2018-06-16] MEDS: ACETAMINOPHEN 650 MG SUPP.RECT RC PRN (17:46)
[2018-06-17] MEDS: IPRATROPIUM/ALBUTEROL SULFATE 3 ML AMPUL.NEB NEB SCH ×6 (02:07→20:25)
[2018-06-17] MEDS: ACETAMINOPHEN 650 MG SUPP.RECT RC PRN ×2 (06:01→12:24)
[2018-06-17] MEDS: ENOXAPARIN SODIUM 30 MG/0.3 ML DISP.SYRIN SQ SCH (08:31)
[2018-06-17] MEDS: SALINE FLUSH 10 ML DISP.SYRIN IVF SCH ×2 (08:31→20:11)
[2018-06-17] MEDS: cefTRIAXone SODIUM 1 GM/50 ML INJ IV SCH (08:32)
--- NOTE | 2018-06-17 12:02 | Inpatient Progress Note ---
Subjective - Required Recertification Statement I anticipate X number of days because-include discharge plan: 2 days - Review of Systems General: Denies: Chills, Fatigue Objective - Exam Vitals and I&O: Vital Signs Temp 100.3 F H 06/17/18 08:28 Pulse 121 H 06/17/18 08:28 Resp 28 H 06/17/18 08:28 BP 160/66 06/17/18 08:28 Pulse Ox 95 06/17/18 08:28 Intake & Output 06/16/18 06/17/18 06/17/18 23:59 11:59 23:59 Intake Total 0 0 Balance 0 0 Intake: Oral 0 0 Other: Voiding Method Diaper Diaper # Voids 1 # Bowel Movements 0 General: No acute distress, Other (not reponding) Neck: Supple Lungs: Wheezes, Rhonchi Cardiovascular: Regular rate, Normal S1, Normal S2, No murmurs Abdomen: Soft, No tenderness Psych/Mental Status: No: Mental status NL, Mood NL, Appropriate Affect, Intact Judgment - Results Results: Laboratory Results WBC 16.00 K/ul (4.00-12.00) H 06/14/18 07:20 RBC 3.91 M/ul (3.90-5.20) 06/14/18 07:20 Hgb 10.7 g/dL (12.0-16.0) L 06/14/18 07:20 Hct 32.7 % (34.5-46.5) L 06/14/18 07:20 MCV 84.0 fl (80.0-100.0) 06/14/18 07:20 MCH 27.3 pg (28.0-34.0) L 06/14/18 07:20 MCHC 32.6 g/dL (30.0-36.0) 06/14/18 07:20 RDW 15.8 % (11.3-14.3) H 06/14/18 07:20 Plt Count 323 K/mm3 (130-400) 06/14/18 07:20 Neut % (Auto) 80.0 % (39.0-79.0) H 06/14/18 07:20 Lymph % (Auto) 8.6 % (16.0-50.0) L 06/14/18 07:20 [place] % (Auto) 9.4 % (0.0-11.0) 06/14/18 07:20 Eos % (Auto) 1.2 % (0.0-6.8) 06/14/18 07:20 Baso % (Auto) 0.8 (0.0-1.5) 06/14/18 07:20 Neut # (Auto) 12.8 # k/uL (1.4-7.7) H 06/14/18 07:20 Lymph # (Auto) 1.4 # k/uL (0.6-4.0) 06/14/18 07:20 [place] # (Auto) 1.5 # k/uL (0.0-0.9) H 06/14/18 07:20 Eos # (Auto) 0.2 # k/uL (0.0-0.6) 06/14/18 07:20 Baso # (Auto) 0.1 # k/uL (0.0-0.5) 06/14/18 07:20 Seg Neutrophils % 85 % (39-79) H 06/13/18 09:45 Band Neutrophils % 3 % (0-12) 06/13/18 09:45 Lymphocytes % 5 % (16-50) L 06/13/18 09:45 Monocytes % 5 % (0-11) 06/13/18 09:45 Metamyelocytes % 2 % (0-0) H 06/13/18 09:45 Anisocytosis 1+ (NEGATIVE) H 06/13/18 09:45 Ovalocytes 1+ (NEGATIVE) H 06/13/18 09:45 [place] Cells 1+ (NEGATIVE) H 06/13/18 09:45 Sodium 144 mmol/L (136-145) 06/15/18 07:15 Potassium 3.3 mmol/L (3.5-5.1) L 06/15/18 07:15 Chloride 105 mmol/L (98-107) 06/15/18 07:15 Carbon Dioxide 27 mmol/L (22-30) 06/15/18 07:15 BUN 84 mg/dL (7-17) H 06/15/18 07:15 Creatinine 3.02 mg/dL (0.52-1.04) H 06/15/18 07:15 Estimated Creat Clear 22 06/15/18 07:15 Est GFR ( Amer) 19 (60-) L 06/15/18 07:15 Est GFR (Non-Af Amer) 15 (60-) L 06/15/18 07:15 Glucose 78 mg/dL (74-106) 06/15/18 07:15 Calcium 7.9 mg/dL (8.4-10.2) L 06/15/18 07:15 Total Bilirubin 0.7 mg/dL (0.2-1.3) 06/14/18 07:20 AST 68 U/L (15-46) H 06/14/18 07:20 ALT 27 U/L (13-69) 06/14/18 07:20 Alkaline Phosphatase 98 U/L (38-126) 06/14/18 07:20 NT-Pro-B Natriuret Pep 82835.4 pg/mL (15.0-450.0) H 06/15/18 07:15 Total Protein 4.9 g/dL (6.3-8.2) L 06/14/18 07:20 Albumin 2.3 g/dL (3.5-5.0) L 06/14/18 07:20 Urine Color [place] (YELLOW) 06/13/18 09:45 Urine Appearance Cloudy (CLEAR) H 06/13/18 09:45 Urine pH 5.0 (5.0 - 8.0) 06/13/18 09:45 Ur Specific [place] 1.020 (1.010-1.030) 06/13/18 09:45 Urine Protein 1+ mg/dL (NEGATIVE) H 06/13/18 09:45 Urine Ketones Trace mg/dL (NEGATIVE) H 06/13/18 09:45 Urine Occult Blood 3+ (NEGATIVE) H 06/13/18 09:45 Urine Nitrite Negative (NEGATIVE) 06/13/18 09:45 Urine Bilirubin 1+ (NEGATIVE) H 06/13/18 09:45 Urine Urobilinogen 0.2 Eu (0.2-1.0) 06/13/18 09:45 Ur Leukocyte Esterase 3+ (NEGATIVE) H 06/13/18 09:45 Urine RBC Cancelled 06/13/18 09:45 Urine WBC Cancelled 06/13/18 09:45 Urine WBC Clumps Cancelled 06/13/18 09:45 Ur Squamous Epith Cells Cancelled 06/13/18 09:45 Ur Transition Epith Cell Cancelled 06/13/18 09:45 Ur Renal Epithelial Cell Cancelled 06/13/18 09:45 Ammonium Urate Crystals Cancelled 06/13/18 09:45 Calcium Carbonate Cryst Cancelled 06/13/18 09:45 Calcium Phosphate Cryst Cancelled 06/13/18 09:45 Calcium Oxalate Crystal Cancelled 06/13/18 09:45 Leucine Crystals Cancelled 06/13/18 09:45 Cystine Crystals Cancelled 06/13/18 09:45 Uric Acid Crystals Cancelled 06/13/18 09:45 Triple Phos Crystals Cancelled 06/13/18 09:45 Cholesterol Crystals Cancelled 06/13/18 09:45 Tyrosine Crystals Cancelled 06/13/18 09:45 Hippuric Acid Crystals Cancelled 06/13/18 09:45 Bilirubin Crystals Cancelled 06/13/18 09:45 Other Crystals Cancelled 06/13/18 09:45 Amorphous Sediment Cancelled 06/13/18 09:45 Urine Bacteria Cancelled 06/13/18 09:45 Hyaline Casts Cancelled 06/13/18 09:45 Granular Casts Cancelled 06/13/18 09:45 Waxy Casts Cancelled 06/13/18 09:45 RBC Casts Cancelled 06/13/18 09:45 WBC Casts Cancelled 06/13/18 09:45 Other Casts Cancelled 06/13/18 09:45 Urine Starch Cancelled 06/13/18 09:45 Urine Mucus Cancelled 06/13/18 09:45 Urine Trichomonas Cancelled 06/13/18 09:45 Urine Yeast Cancelled 06/13/18 09:45 Urine Sperm Cancelled 06/13/18 09:45 Urine Glucose Negative mg/dL (NEGATIVE) 06/13/18 09:45 Influenza A (Rapid) Negative (NEGATIVE) 06/13/18 09:45 Influenza B (Rapid) Negative (NEGATIVE) 06/13/18 09:45 Assessment/Plan - Assessment/Plan (1) Pneumonia Status: Acute Current Visit: Yes Qualifiers: Pneumonia type: due to unspecified organism Laterality: right Lung location: lower lobe of lung Qualified Code(s): J18.1 - Lobar pneumonia, unspecified organism Assessment: continue with antibiotic therapy (2) Kidney failure Status: Acute Current Visit: Yes Qualifiers: Renal failure chronicity: acute Acute renal failure type: unspecified Qualified Code(s): N17.9 - Acute kidney failure, unspecified Assessment: Is having some urine output (3) Chronic hypertension Status: Acute Current Visit: No Assessment: BP ie elvated some today.
[2018-06-18] MEDS: IPRATROPIUM/ALBUTEROL SULFATE 3 ML AMPUL.NEB NEB SCH ×6 (00:40→21:37)
[2018-06-18] MEDS: SALINE FLUSH 10 ML DISP.SYRIN IVF SCH ×2 (08:35→19:44)
[2018-06-18] MEDS: cefTRIAXone SODIUM 1 GM/50 ML INJ IV SCH (08:35)
[2018-06-18] MEDS: ENOXAPARIN SODIUM 30 MG/0.3 ML DISP.SYRIN SQ SCH (08:35)
[2018-06-18] MEDS: MORPHINE SULFATE 10MG/0.5ML ORAL SOLN UD CUP SL PRN (18:23)
[2018-06-18] MEDS: LORazepam 2 MG/ML VIAL IV PRN (19:35)
[2018-06-19] MEDS: IPRATROPIUM/ALBUTEROL SULFATE 3 ML AMPUL.NEB NEB SCH ×6 (01:20→20:24)
[2018-06-19] MEDS: MORPHINE SULFATE 10MG/0.5ML ORAL SOLN UD CUP SL PRN ×5 (03:54→20:23)
[2018-06-19] MEDS: SALINE FLUSH 10 ML DISP.SYRIN IVF SCH ×2 (07:41→20:23)
[2018-06-19] MEDS: ENOXAPARIN SODIUM 30 MG/0.3 ML DISP.SYRIN SQ SCH (07:41)
[2018-06-19] MEDS: ACETAMINOPHEN 325 MG TABLET PO PRN (07:42)
[2018-06-19] MEDS: SCOPOLAMINE HYDROBROMIDE 1.5MG/72HR PATCH TD SCH (07:43)
[2018-06-19] MEDS: ACETAMINOPHEN 650 MG SUPP.RECT RC PRN ×4 (07:43→20:17)
[2018-06-19] MEDS: cefTRIAXone SODIUM 1 GM/50 ML INJ IV SCH (07:47)
[2018-06-19] MEDS ORDERED: SCOPOLAMINE HYDROBROMIDE 1.5MG/72HR PATCH TD SCH (09:00)
[2018-06-19] MEDS: LORazepam 2 MG/ML VIAL IV PRN (09:02)
[2018-06-20] MEDS: MORPHINE SULFATE 10MG/0.5ML ORAL SOLN UD CUP SL PRN ×5 (00:04→15:13)
[2018-06-20] MEDS: IPRATROPIUM/ALBUTEROL SULFATE 3 ML AMPUL.NEB NEB SCH ×4 (01:30→13:19)
--- NOTE | 2018-06-20 07:41 | Inpatient Progress Note ---
Subjective - Required Recertification Statement I anticipate X number of days because-include discharge plan: 2 days - Review of Systems Events since last encounter: Patient is not changed much since yesterday. Patient did remained unresponsive. Patient is not taking in any oral intake. Patient appeared to be comfortable. Objective - Exam Vitals and I&O: Vital Signs Temp 98.8 F 06/20/18 05:57 Pulse 102 H 06/20/18 05:57 Resp 8 L 06/20/18 06:01 BP 89/37 06/20/18 05:57 Pulse Ox 93 06/20/18 05:57 Intake & Output 06/19/18 06/19/18 06/20/18 11:59 23:59 11:59 Intake Total 0 0 Output Total 0 Balance 0 0 0 Weight 95.254 kg Intake: Oral 0 0 Output: Urine 0 Other: Voiding Method Diaper Diaper Diaper # Voids 0 # Bowel Movements 0 General: Other (unresponsive) Neck: Supple, No JVD Lungs: Rales (right). No: Wheezes, Rhonchi Cardiovascular: Regular rate, Normal S1, Normal S2 Abdomen: Normal bowel sounds, Soft, No tenderness Skin: Normal, Warm Psych/Mental Status: No: Mental status NL - Results Results: Laboratory Results WBC 16.00 K/ul (4.00-12.00) H 06/14/18 07:20 RBC 3.91 M/ul (3.90-5.20) 06/14/18 07:20 Hgb 10.7 g/dL (12.0-16.0) L 06/14/18 07:20 Hct 32.7 % (34.5-46.5) L 06/14/18 07:20 MCV 84.0 fl (80.0-100.0) 06/14/18 07:20 MCH 27.3 pg (28.0-34.0) L 06/14/18 07:20 MCHC 32.6 g/dL (30.0-36.0) 06/14/18 07:20 RDW 15.8 % (11.3-14.3) H 06/14/18 07:20 Plt Count 323 K/mm3 (130-400) 06/14/18 07:20 Neut % (Auto) 80.0 % (39.0-79.0) H 06/14/18 07:20 Lymph % (Auto) 8.6 % (16.0-50.0) L 06/14/18 07:20 [place] % (Auto) 9.4 % (0.0-11.0) 06/14/18 07:20 Eos % (Auto) 1.2 % (0.0-6.8) 06/14/18 07:20 Baso % (Auto) 0.8 (0.0-1.5) 06/14/18 07:20 Neut # (Auto) 12.8 # k/uL (1.4-7.7) H 06/14/18 07:20 Lymph # (Auto) 1.4 # k/uL (0.6-4.0) 06/14/18 07:20 [place] # (Auto) 1.5 # k/uL (0.0-0.9) H 06/14/18 07:20 Eos # (Auto) 0.2 # k/uL (0.0-0.6) 06/14/18 07:20 Baso # (Auto) 0.1 # k/uL (0.0-0.5) 06/14/18 07:20 Seg Neutrophils % 85 % (39-79) H 06/13/18 09:45 Band Neutrophils % 3 % (0-12) 06/13/18 09:45 Lymphocytes % 5 % (16-50) L 06/13/18 09:45 Monocytes % 5 % (0-11) 06/13/18 09:45 Metamyelocytes % 2 % (0-0) H 06/13/18 09:45 Anisocytosis 1+ (NEGATIVE) H 06/13/18 09:45 Ovalocytes 1+ (NEGATIVE) H 06/13/18 09:45 Gopi Cells 1+ (NEGATIVE) H 06/13/18 09:45 Sodium 144 mmol/L (136-145) 06/15/18 07:15 Potassium 3.3 mmol/L (3.5-5.1) L 06/15/18 07:15 Chloride 105 mmol/L (98-107) 06/15/18 07:15 Carbon Dioxide 27 mmol/L (22-30) 06/15/18 07:15 BUN 84 mg/dL (7-17) H 06/15/18 07:15 Creatinine 3.02 mg/dL (0.52-1.04) H 06/15/18 07:15 Estimated Creat Clear 22 06/15/18 07:15 Est GFR ( Amer) 19 (60-) L 06/15/18 07:15 Est GFR (Non-Af Amer) 15 (60-) L 06/15/18 07:15 Glucose 78 mg/dL (74-106) 06/15/18 07:15 Calcium 7.9 mg/dL (8.4-10.2) L 06/15/18 07:15 Total Bilirubin 0.7 mg/dL (0.2-1.3) 06/14/18 07:20 AST 68 U/L (15-46) H 06/14/18 07:20 ALT 27 U/L (13-69) 06/14/18 07:20 Alkaline Phosphatase 98 U/L (38-126) 06/14/18 07:20 NT-Pro-B Natriuret Pep 62564.4 pg/mL (15.0-450.0) H 06/15/18 07:15 Total Protein 4.9 g/dL (6.3-8.2) L 06/14/18 07:20 Albumin 2.3 g/dL (3.5-5.0) L 06/14/18 07:20 Urine Color [place] (YELLOW) 06/13/18 09:45 Urine Appearance Cloudy (CLEAR) H 06/13/18 09:45 Urine pH 5.0 (5.0 - 8.0) 06/13/18 09:45 Ur Specific [place] 1.020 (1.010-1.030) 06/13/18 09:45 Urine Protein 1+ mg/dL (NEGATIVE) H 06/13/18 09:45 Urine Ketones Trace mg/dL (NEGATIVE) H 06/13/18 09:45 Urine Occult Blood 3+ (NEGATIVE) H 06/13/18 09:45 Urine Nitrite Negative (NEGATIVE) 06/13/18 09:45 Urine Bilirubin 1+ (NEGATIVE) H 06/13/18 09:45 Urine Urobilinogen 0.2 Eu (0.2-1.0) 06/13/18 09:45 Ur Leukocyte Esterase 3+ (NEGATIVE) H 06/13/18 09:45 Urine RBC Cancelled 06/13/18 09:45 Urine WBC Cancelled 06/13/18 09:45 Urine WBC Clumps Cancelled 06/13/18 09:45 Ur Squamous Epith Cells Cancelled 06/13/18 09:45 Ur Transition Epith Cell Cancelled 06/13/18 09:45 Ur Renal Epithelial Cell Cancelled 06/13/18 09:45 Ammonium Urate Crystals Cancelled 06/13/18 09:45 Calcium Carbonate Cryst Cancelled 06/13/18 09:45 Calcium Phosphate Cryst Cancelled 06/13/18 09:45 Calcium Oxalate Crystal Cancelled 06/13/18 09:45 Leucine Crystals Cancelled 06/13/18 09:45 Cystine Crystals Cancelled 06/13/18 09:45 Uric Acid Crystals Cancelled 06/13/18 09:45 Triple Phos Crystals Cancelled 06/13/18 09:45 Cholesterol Crystals Cancelled 06/13/18 09:45 Tyrosine Crystals Cancelled 06/13/18 09:45 Hippuric Acid Crystals Cancelled 06/13/18 09:45 Bilirubin Crystals Cancelled 06/13/18 09:45 Other Crystals Cancelled 06/13/18 09:45 Amorphous Sediment Cancelled 06/13/18 09:45 Urine Bacteria Cancelled 06/13/18 09:45 Hyaline Casts Cancelled 06/13/18 09:45 Granular Casts Cancelled 06/13/18 09:45 Waxy Casts Cancelled 06/13/18 09:45 RBC Casts Cancelled 06/13/18 09:45 WBC Casts Cancelled 06/13/18 09:45 Other Casts Cancelled 06/13/18 09:45 Urine Starch Cancelled 06/13/18 09:45 Urine Mucus Cancelled 06/13/18 09:45 Urine Trichomonas Cancelled 06/13/18 09:45 Urine Yeast Cancelled 06/13/18 09:45 Urine Sperm Cancelled 06/13/18 09:45 Urine Glucose Negative mg/dL (NEGATIVE) 06/13/18 09:45 Influenza A (Rapid) Negative (NEGATIVE) 06/13/18 09:45 Influenza B (Rapid) Negative (NEGATIVE) 06/13/18 09:45 Assessment/Plan - Assessment/Plan (1) Pneumonia Status: Acute Current Visit: Yes Qualifiers: Pneumonia type: due to unspecified organism Laterality: right Lung location: lower lobe of lung Qualified Code(s): J18.1 - Lobar pneumonia, unspecified organism Assessment: no significant change (2) Kidney failure Status: Acute Current Visit: Yes Qualifiers: Renal failure chronicity: acute Acute renal failure type: unspecified Qualified Code(s): N17.9 - Acute kidney failure, unspecified Assessment: no significant change. Will continue with comfort care. (3) Chronic hypertension Status: Acute Current Visit: No Assessment: stable
--- NOTE | 2018-06-20 07:48 | Inpatient Progress Note ---
Subjective - Required Recertification Statement I anticipate X number of days because-include discharge plan: 1 day - Review of Systems Events since last encounter: Patient has been fairly stable. Patient continues to be nonresponsive except to painful stimuli. Patient is not had any oral intake. Comfort measures are in place. Patient does not seem to be coughing very much at this time. General: Denies: Chills Pulmonary: Dyspnea. Denies: Cough Cardiovascular: Denies: Chest Pain Gastrointestinal: Denies: Nausea, Vomiting Objective - Exam Vitals and I&O: Vital Signs Temp 98.8 F 06/20/18 05:57 Pulse 102 H 06/20/18 05:57 Resp 8 L 06/20/18 06:01 BP 89/37 06/20/18 05:57 Pulse Ox 93 06/20/18 05:57 Intake & Output 06/19/18 06/19/18 06/20/18 11:59 23:59 11:59 Intake Total 0 0 Output Total 0 Balance 0 0 0 Weight 95.254 kg Intake: Oral 0 0 Output: Urine 0 Other: Voiding Method Diaper Diaper Diaper # Voids 0 # Bowel Movements 0 General: Other (nonresponsive) Neck: Supple Lungs: Rales (RLL), Rhonchi (RLL) Cardiovascular: Regular rate, Normal S1, Normal S2, No murmurs Abdomen: Normal bowel sounds, Soft Skin: Normal, [place] - Results Results: Laboratory Results WBC 16.00 K/ul (4.00-12.00) H 06/14/18 07:20 RBC 3.91 M/ul (3.90-5.20) 06/14/18 07:20 Hgb 10.7 g/dL (12.0-16.0) L 06/14/18 07:20 Hct 32.7 % (34.5-46.5) L 06/14/18 07:20 MCV 84.0 fl (80.0-100.0) 06/14/18 07:20 MCH 27.3 pg (28.0-34.0) L 06/14/18 07:20 MCHC 32.6 g/dL (30.0-36.0) 06/14/18 07:20 RDW 15.8 % (11.3-14.3) H 06/14/18 07:20 Plt Count 323 K/mm3 (130-400) 06/14/18 07:20 Neut % (Auto) 80.0 % (39.0-79.0) H 06/14/18 07:20 Lymph % (Auto) 8.6 % (16.0-50.0) L 06/14/18 07:20 [place] % (Auto) 9.4 % (0.0-11.0) 06/14/18 07:20 Eos % (Auto) 1.2 % (0.0-6.8) 06/14/18 07:20 Baso % (Auto) 0.8 (0.0-1.5) 06/14/18 07:20 Neut # (Auto) 12.8 # k/uL (1.4-7.7) H 06/14/18 07:20 Lymph # (Auto) 1.4 # k/uL (0.6-4.0) 06/14/18 07:20 [place] # (Auto) 1.5 # k/uL (0.0-0.9) H 06/14/18 07:20 Eos # (Auto) 0.2 # k/uL (0.0-0.6) 06/14/18 07:20 Baso # (Auto) 0.1 # k/uL (0.0-0.5) 06/14/18 07:20 Seg Neutrophils % 85 % (39-79) H 06/13/18 09:45 Band Neutrophils % 3 % (0-12) 06/13/18 09:45 Lymphocytes % 5 % (16-50) L 06/13/18 09:45 Monocytes % 5 % (0-11) 06/13/18 09:45 Metamyelocytes % 2 % (0-0) H 06/13/18 09:45 Anisocytosis 1+ (NEGATIVE) H 06/13/18 09:45 Ovalocytes 1+ (NEGATIVE) H 06/13/18 09:45 Gopi Cells 1+ (NEGATIVE) H 06/13/18 09:45 Sodium 144 mmol/L (136-145) 06/15/18 07:15 Potassium 3.3 mmol/L (3.5-5.1) L 06/15/18 07:15 Chloride 105 mmol/L (98-107) 06/15/18 07:15 Carbon Dioxide 27 mmol/L (22-30) 06/15/18 07:15 BUN 84 mg/dL (7-17) H 06/15/18 07:15 Creatinine 3.02 mg/dL (0.52-1.04) H 06/15/18 07:15 Estimated Creat Clear 22 06/15/18 07:15 Est GFR ( Amer) 19 (60-) L 06/15/18 07:15 Est GFR (Non-Af Amer) 15 (60-) L 06/15/18 07:15 Glucose 78 mg/dL (74-106) 06/15/18 07:15 Calcium 7.9 mg/dL (8.4-10.2) L 06/15/18 07:15 Total Bilirubin 0.7 mg/dL (0.2-1.3) 06/14/18 07:20 AST 68 U/L (15-46) H 06/14/18 07:20 ALT 27 U/L (13-69) 06/14/18 07:20 Alkaline Phosphatase 98 U/L (38-126) 06/14/18 07:20 NT-Pro-B Natriuret Pep 68343.4 pg/mL (15.0-450.0) H 06/15/18 07:15 Total Protein 4.9 g/dL (6.3-8.2) L 06/14/18 07:20 Albumin 2.3 g/dL (3.5-5.0) L 06/14/18 07:20 Urine Color [place] (YELLOW) 06/13/18 09:45 Urine Appearance Cloudy (CLEAR) H 06/13/18 09:45 Urine pH 5.0 (5.0 - 8.0) 06/13/18 09:45 Ur Specific [place] 1.020 (1.010-1.030) 06/13/18 09:45 Urine Protein 1+ mg/dL (NEGATIVE) H 06/13/18 09:45 Urine Ketones Trace mg/dL (NEGATIVE) H 06/13/18 09:45 Urine Occult Blood 3+ (NEGATIVE) H 06/13/18 09:45 Urine Nitrite Negative (NEGATIVE) 06/13/18 09:45 Urine Bilirubin 1+ (NEGATIVE) H 06/13/18 09:45 Urine Urobilinogen 0.2 Eu (0.2-1.0) 06/13/18 09:45 Ur Leukocyte Esterase 3+ (NEGATIVE) H 06/13/18 09:45 Urine RBC Cancelled 06/13/18 09:45 Urine WBC Cancelled 06/13/18 09:45 Urine WBC Clumps Cancelled 06/13/18 09:45 Ur Squamous Epith Cells Cancelled 06/13/18 09:45 Ur Transition Epith Cell Cancelled 06/13/18 09:45 Ur Renal Epithelial Cell Cancelled 06/13/18 09:45 Ammonium Urate Crystals Cancelled 06/13/18 09:45 Calcium Carbonate Cryst Cancelled 06/13/18 09:45 Calcium Phosphate Cryst Cancelled 06/13/18 09:45 Calcium Oxalate Crystal Cancelled 06/13/18 09:45 Leucine Crystals Cancelled 06/13/18 09:45 Cystine Crystals Cancelled 06/13/18 09:45 Uric Acid Crystals Cancelled 06/13/18 09:45 Triple Phos Crystals Cancelled 06/13/18 09:45 Cholesterol Crystals Cancelled 06/13/18 09:45 Tyrosine Crystals Cancelled 06/13/18 09:45 Hippuric Acid Crystals Cancelled 06/13/18 09:45 Bilirubin Crystals Cancelled 06/13/18 09:45 Other Crystals Cancelled 06/13/18 09:45 Amorphous Sediment Cancelled 06/13/18 09:45 Urine Bacteria Cancelled 06/13/18 09:45 Hyaline Casts Cancelled 06/13/18 09:45 Granular Casts Cancelled 06/13/18 09:45 Waxy Casts Cancelled 06/13/18 09:45 RBC Casts Cancelled 06/13/18 09:45 WBC Casts Cancelled 06/13/18 09:45 Other Casts Cancelled 06/13/18 09:45 Urine Starch Cancelled 06/13/18 09:45 Urine Mucus Cancelled 06/13/18 09:45 Urine Trichomonas Cancelled 06/13/18 09:45 Urine Yeast Cancelled 06/13/18 09:45 Urine Sperm Cancelled 06/13/18 09:45 Urine Glucose Negative mg/dL (NEGATIVE) 06/13/18 09:45 Influenza A (Rapid) Negative (NEGATIVE) 06/13/18 09:45 Influenza B (Rapid) Negative (NEGATIVE) 06/13/18 09:45 Assessment/Plan - Assessment/Plan (1) Pneumonia Status: Acute Current Visit: Yes Qualifiers: Pneumonia type: due to unspecified organism Laterality: right Lung location: lower lobe of lung Qualified Code(s): J18.1 - Lobar pneumonia, unspecified organism Assessment: continue with IV antibiotic. Comfort care only (2) Kidney failure Status: Acute Current Visit: Yes Qualifiers: Renal failure chronicity: acute Acute renal failure type: unspecified Qualified Code(s): N17.9 - Acute kidney failure, unspecified (3) Chronic hypertension Status: Acute Current Visit: No
--- NOTE | 2018-06-20 07:51 | Inpatient Progress Note ---
Subjective - Required Recertification Statement I anticipate X number of days because-include discharge plan: 1 day - Review of Systems Events since last encounter: No change from yesterday. Patient is becoming more tachycardiac. Breathing effort seems to be waining some.Unresponsive. Objective - Exam Vitals and I&O: Vital Signs Temp 98.8 F 06/20/18 05:57 Pulse 102 H 06/20/18 05:57 Resp 8 L 06/20/18 06:01 BP 89/37 06/20/18 05:57 Pulse Ox 93 06/20/18 05:57 Intake & Output 06/19/18 06/19/18 06/20/18 11:59 23:59 11:59 Intake Total 0 0 Output Total 0 Balance 0 0 0 Weight 95.254 kg Intake: Oral 0 0 Output: Urine 0 Other: Voiding Method Diaper Diaper Diaper # Voids 0 # Bowel Movements 0 General: Other (aaliyah) Lungs: Rhonchi (improved some), Accessory Muscle Use (mild). No: Wheezes, Rales Cardiovascular: Regular rate (tachy), Normal S1, Normal S2, No murmurs - Results Results: Laboratory Results WBC 16.00 K/ul (4.00-12.00) H 06/14/18 07:20 RBC 3.91 M/ul (3.90-5.20) 06/14/18 07:20 Hgb 10.7 g/dL (12.0-16.0) L 06/14/18 07:20 Hct 32.7 % (34.5-46.5) L 06/14/18 07:20 MCV 84.0 fl (80.0-100.0) 06/14/18 07:20 MCH 27.3 pg (28.0-34.0) L 06/14/18 07:20 MCHC 32.6 g/dL (30.0-36.0) 06/14/18 07:20 RDW 15.8 % (11.3-14.3) H 06/14/18 07:20 Plt Count 323 K/mm3 (130-400) 06/14/18 07:20 Neut % (Auto) 80.0 % (39.0-79.0) H 06/14/18 07:20 Lymph % (Auto) 8.6 % (16.0-50.0) L 06/14/18 07:20 [place] % (Auto) 9.4 % (0.0-11.0) 06/14/18 07:20 Eos % (Auto) 1.2 % (0.0-6.8) 06/14/18 07:20 Baso % (Auto) 0.8 (0.0-1.5) 06/14/18 07:20 Neut # (Auto) 12.8 # k/uL (1.4-7.7) H 06/14/18 07:20 Lymph # (Auto) 1.4 # k/uL (0.6-4.0) 06/14/18 07:20 [place] # (Auto) 1.5 # k/uL (0.0-0.9) H 06/14/18 07:20 Eos # (Auto) 0.2 # k/uL (0.0-0.6) 06/14/18 07:20 Baso # (Auto) 0.1 # k/uL (0.0-0.5) 06/14/18 07:20 Seg Neutrophils % 85 % (39-79) H 06/13/18 09:45 Band Neutrophils % 3 % (0-12) 06/13/18 09:45 Lymphocytes % 5 % (16-50) L 06/13/18 09:45 Monocytes % 5 % (0-11) 06/13/18 09:45 Metamyelocytes % 2 % (0-0) H 06/13/18 09:45 Anisocytosis 1+ (NEGATIVE) H 06/13/18 09:45 Ovalocytes 1+ (NEGATIVE) H 06/13/18 09:45 [place] Cells 1+ (NEGATIVE) H 06/13/18 09:45 Sodium 144 mmol/L (136-145) 06/15/18 07:15 Potassium 3.3 mmol/L (3.5-5.1) L 06/15/18 07:15 Chloride 105 mmol/L (98-107) 06/15/18 07:15 Carbon Dioxide 27 mmol/L (22-30) 06/15/18 07:15 BUN 84 mg/dL (7-17) H 06/15/18 07:15 Creatinine 3.02 mg/dL (0.52-1.04) H 06/15/18 07:15 Estimated Creat Clear 22 06/15/18 07:15 Est GFR ( Amer) 19 (60-) L 06/15/18 07:15 Est GFR (Non-Af Amer) 15 (60-) L 06/15/18 07:15 Glucose 78 mg/dL (74-106) 06/15/18 07:15 Calcium 7.9 mg/dL (8.4-10.2) L 06/15/18 07:15 Total Bilirubin 0.7 mg/dL (0.2-1.3) 06/14/18 07:20 AST 68 U/L (15-46) H 06/14/18 07:20 ALT 27 U/L (13-69) 06/14/18 07:20 Alkaline Phosphatase 98 U/L (38-126) 06/14/18 07:20 NT-Pro-B Natriuret Pep 10363.4 pg/mL (15.0-450.0) H 06/15/18 07:15 Total Protein 4.9 g/dL (6.3-8.2) L 06/14/18 07:20 Albumin 2.3 g/dL (3.5-5.0) L 06/14/18 07:20 Urine Color [place] (YELLOW) 06/13/18 09:45 Urine Appearance Cloudy (CLEAR) H 06/13/18 09:45 Urine pH 5.0 (5.0 - 8.0) 06/13/18 09:45 Ur Specific [place] 1.020 (1.010-1.030) 06/13/18 09:45 Urine Protein 1+ mg/dL (NEGATIVE) H 06/13/18 09:45 Urine Ketones Trace mg/dL (NEGATIVE) H 06/13/18 09:45 Urine Occult Blood 3+ (NEGATIVE) H 06/13/18 09:45 Urine Nitrite Negative (NEGATIVE) 06/13/18 09:45 Urine Bilirubin 1+ (NEGATIVE) H 06/13/18 09:45 Urine Urobilinogen 0.2 Eu (0.2-1.0) 06/13/18 09:45 Ur Leukocyte Esterase 3+ (NEGATIVE) H 06/13/18 09:45 Urine RBC Cancelled 06/13/18 09:45 Urine WBC Cancelled 06/13/18 09:45 Urine WBC Clumps Cancelled 06/13/18 09:45 Ur Squamous Epith Cells Cancelled 06/13/18 09:45 Ur Transition Epith Cell Cancelled 06/13/18 09:45 Ur Renal Epithelial Cell Cancelled 06/13/18 09:45 Ammonium Urate Crystals Cancelled 06/13/18 09:45 Calcium Carbonate Cryst Cancelled 06/13/18 09:45 Calcium Phosphate Cryst Cancelled 06/13/18 09:45 Calcium Oxalate Crystal Cancelled 06/13/18 09:45 Leucine Crystals Cancelled 06/13/18 09:45 Cystine Crystals Cancelled 06/13/18 09:45 Uric Acid Crystals Cancelled 06/13/18 09:45 Triple Phos Crystals Cancelled 06/13/18 09:45 Cholesterol Crystals Cancelled 06/13/18 09:45 Tyrosine Crystals Cancelled 06/13/18 09:45 Hippuric Acid Crystals Cancelled 06/13/18 09:45 Bilirubin Crystals Cancelled 06/13/18 09:45 Other Crystals Cancelled 06/13/18 09:45 Amorphous Sediment Cancelled 06/13/18 09:45 Urine Bacteria Cancelled 06/13/18 09:45 Hyaline Casts Cancelled 06/13/18 09:45 Granular Casts Cancelled 06/13/18 09:45 Waxy Casts Cancelled 06/13/18 09:45 RBC Casts Cancelled 06/13/18 09:45 WBC Casts Cancelled 06/13/18 09:45 Other Casts Cancelled 06/13/18 09:45 Urine Starch Cancelled 06/13/18 09:45 Urine Mucus Cancelled 06/13/18 09:45 Urine Trichomonas Cancelled 06/13/18 09:45 Urine Yeast Cancelled 06/13/18 09:45 Urine Sperm Cancelled 06/13/18 09:45 Urine Glucose Negative mg/dL (NEGATIVE) 06/13/18 09:45 Influenza A (Rapid) Negative (NEGATIVE) 06/13/18 09:45 Influenza B (Rapid) Negative (NEGATIVE) 06/13/18 09:45 Assessment/Plan - Assessment/Plan (1) Pneumonia Status: Acute Current Visit: Yes Qualifiers: Pneumonia type: due to unspecified organism Laterality: right Lung location: lower lobe of lung Qualified Code(s): J18.1 - Lobar pneumonia, unspecified organism Assessment: spoke with family getting close to finishing antibioitc therapy, may need to transfer back to [facility]. (2) Kidney failure Status: Acute Current Visit: Yes Qualifiers: Renal failure chronicity: acute Acute renal failure type: unspecified Qualified Code(s): N17.9 - Acute kidney failure, unspecified (3) Chronic hypertension Status: Acute Current Visit: No Assessment: becoming hypotensive at times, off her meds
[2018-06-20] MEDS: ENOXAPARIN SODIUM 30 MG/0.3 ML DISP.SYRIN SQ SCH (08:38)
[2018-06-20] MEDS: SALINE FLUSH 10 ML DISP.SYRIN IVF SCH (08:39)
[2018-06-20] MEDS: cefTRIAXone SODIUM 1 GM/50 ML INJ IV SCH (08:40)
[2018-06-20] MEDS ORDERED: GLYCOPYRROLATE 0.2 MG/1 ML 1 ML IV PRN (12:35)
[2018-06-20 13:52] VITALS: BP 65/28
[2018-06-20] MEDS: LORazepam 2 MG/ML VIAL IV PRN (15:41)
--- NOTE | 2018-06-27 13:10 | Discharge Summary ---
Discharge Summary - Discharge Sumary Date: 06/20/18 History of Present Illness: This is an 87 year old female patient of mine from [facility] who has been having some cough and decreased sensorium for the pat few days. She was on levofloxacin for 3 days, orally, but continued to decline and was brought to the ER, where she was found to be in acute renal failure which seem to be pre renal, and with a large right sided consolidation and a white count of 21K. She has been placed on IV rocephin and azithromycin. We have been gently rehydrating her, and she has actually been a little more oriented over the course of the day. Condition at Discharge: Stable Home Medications: Ambulatory Orders Medication Instructions Recorded Acetaminophen [Tylenol] 650 mg PO Q6 PRN 06/13/18 Cyanocobalamin [Vitamin B-12] 1,000 mcg PO DAILY 06/13/18 Furosemide [Lasix] 20 mg PO DAILY 06/13/18 Levofloxacin [Levaquin] 500 mg PO DAILY 06/13/18 Mag Hydrox/Aluminum Hyd/Simeth 30 ml PO DAILY PRN 06/13/18 [Mylanta] Magnesium Hydroxide [Milk of 30 ml PO DAILY PRN 06/13/18 Magnesia] Consultations this Visit: None Procedures this Visit: None Allergies/Adverse Reactions: Allergies Allergy/AdvReac Type Severity Reaction Status Date / Time Penicillins Allergy Unknown Verified 06/13/18 14:28 Discharge Summary: Patient was admitted to acute care at the hospital. Patient was started on ceftriaxone and azithromycin for IV antibiotic therapy for her pneumonia. Chest x-ray did show a right large consolidation consistent with possible pneumonia. Patient was started on DuoNeb treatments to help mobilize her secretions and help with her bronchospasms. Patient condition did not improve during the hospitalization. Patient was noted to have elevated BUN and creatinine. Patient had a markedly elevated BNP also. Patient became less responsive. After discussing patient situation with her family was elected to place her on comfort care. IV fluids were withdrawn. Patient was started on fentanyl patch to help with pain. Patient was given scopolamine patch to help with her secretions she was having. Patient remained unresponsive except to painful stimuli after the second day of hospitalization. On June 20 patient did . Hospital Course: Admit: 13 JUN 2018. Level of Care: Acute. Discharge: 20 JUN 2018. Disposition: - Final Diagnosis (1) Pneumonia Problems: treated (2) Kidney failure Problems: no change during hospitalization (3) Chronic hypertension Problems: remained stable
== END 2018-06-20 17:41 | disposition expired | DRG 194 ==
LOC: ED 09:39 → SOUTH 11:56
PROVIDERS: ADMIT Family Medicine; ATTEND Family Medicine
DX: J18.1 Lobar pneumonia, unspecified organism (principal); N17.9 Acute kidney failure, unspecified; E86.0 Dehydration; I48.2 Chronic atrial fibrillation; I25.10 Atherosclerotic heart disease of native coronary artery without angina pectoris; I50.9 Heart failure, unspecified; I10 Essential (primary) hypertension; G62.9 Polyneuropathy, unspecified
CPT/HCPCS: 51701; 71045; 80048; 80053; 81002; 83880; 85025; 87040; 87086; 87400; 94640; 94760; 96365; 96366; 96375; 99223; 99231; 99232; 99238; 99284; 99285; J0456; J0696; J1650; J1885; J2060; J3010; J3490; J7050; A9270-GY; J7030; S1016